=== PATIENT | female | born 1985 | race Hispanic/Latino ===

== ENCOUNTER 2018-07-05 01:49 | Emergency (ER) | payer SELFPAY ==
[2018-07-05] MEDS ORDERED: Bacitracin 500 Units/gm Oint Foilpak UD ONE (02:14)
--- NOTE | 2018-07-05 02:16 | C.PDOC ---
History Of Present Illness 32 year old female is brought to the ED for evaluation after a fall [employer]. Patient state she fell sustaining bruises to her left forearm and left buttock. Patient denies LOC, headache, head injury, neck pain, nausea, vomit, dizziness, weakness, numbness. Chief Complaint (Nursing): Medical Clearance History Per: Patient History/Exam Limitations: no limitations Onset/Duration Of Symptoms: Hrs Current Symptoms Are (Timing): Still Present Recent travel outside of the [place]: No Additional History Per: Patient Past Medical History Reviewed: Historical Data, Nursing Documentation, Vital Signs Vital Signs: Last Vital Signs Temp 98.3 F 07/05/18 02:02 Pulse 65 07/05/18 02:02 Resp 20 07/05/18 02:02 BP 105/71 07/05/18 02:02 Pulse Ox 97 07/05/18 02:02 - Medical History PMH: No Chronic Diseases Surgical History: No Surg Hx Family History: States: Unknown Family Hx - Social History Hx Alcohol Use: No Hx Substance Use: No Review Of Systems Constitutional: Negative for: Fever, Chills Eyes: Negative for: Vision Change Cardiovascular: Negative for: Chest Pain Respiratory: Negative for: Shortness of Breath Gastrointestinal: Negative for: Nausea, Vomiting Musculoskeletal: Positive for: Arm Pain, Back Pain Skin: Positive for: Bruising Neurological: Negative for: Weakness, Numbness, Headache, Dizziness Physical Exam - Physical Exam Appears: Non-toxic, No Acute Distress Skin: Normal Color, Warm, Dry Head: Atraumatic, Normacephalic Eye(s): bilateral: Normal Inspection Oral Mucosa: Moist Neck: Normal ROM, No Midline Cervical Tenderness, Supple Chest: Symmetrical Cardiovascular: Rhythm Regular Respiratory: Normal Breath Sounds, No Rales, No Rhonchi, No Wheezing Gastrointestinal/Abdominal: Soft, No Tenderness, No Guarding, No Rebound Back: Other (left buttock 4-5 inches, 5 bruises) Extremity: Normal ROM, Tenderness (left proximal forearm near elbow), Capillary Refill (< 2 seconds), No Swelling, Other (left elbow 2-3 inches bruises ) Neurological/Psych: Oriented x3, Normal Speech, Normal Cognition, Normal Motor, Normal Sensation Gait: Steady ED Course And Treatment O2 Sat by Pulse Oximetry: 97 (ON RA) Pulse Ox Interpretation: Normal Disposition Counseled Patient/Family Regarding: Diagnosis - Disposition Referrals: [facility] [Outside] Disposition: HOME/ ROUTINE Disposition Time: 02:22 Condition: STABLE Prescriptions: Bacitracin Ointment [Bacitracin] 30 gm TOP BID #1 tube Instructions: Wound Care (DC) Forms: [facility] ([place]ayan) - POA Present On Arrival: None - Clinical Impression Clinical Impression: Abrasion of elbow, Buttock abrasion - Scribe Statement The provider has reviewed the documentation as recorded by the Scribe Malik Raymond All medical record entries made by the Scribe were at my direction and personally dictated by me. I have reviewed the chart and agree that the record accurately reflects my personal performance of the history, physical exam, medical decision making, and the department course for this patient. I have also personally directed, reviewed, and agree with the discharge instructions and disposition.
[2018-07-05] MEDS ORDERED: Bacitracin 500 Units/gm Oint Foilpak UD TOP ONE (02:21)
[2018-07-05 09:42] VITALS: BP 103/64; PULSE 66; RESP 18; TEMP 97.5; O2SAT 100
== END 2018-07-05 10:03 | disposition home or self-care (01) ==
LOC: C.ER 01:49
DX: S50.312A Abrasion of left elbow, initial encounter (principal); S30.810A Abrasion of lower back and pelvis, initial encounter; W18.30XA Fall on same level, unspecified, initial encounter